=== PATIENT | male | born 1985 | race Caucasian/White ===

== ENCOUNTER 2018-07-17 22:30 | Observation (INO) | payer OTHER ==
[~2018-07-17] VITALS: Ht 177.8 cm; Wt 161.0 kg
[2018-07-17] MEDS ORDERED: ONDANSETRON HCL INJ 2MG/ML 2ML 2 MG/ML VIAL IV STA (22:56)
[2018-07-17] MEDS ORDERED: MORPHINE SULFATE INJ 4 MG/ML INJ 1ML IV ONE (23:00)
[2018-07-17 23:30] LABS: BASOPHILS % 0.2 % (0.0-1.0); EOSINOPHILS # (AUTO) 0.2 (0.0-0.4); EOSINOPHILS % 1.6 % (0.0-6.0); HEMATOCRIT 44.2 % (38.2-49.6); HEMOGLOBIN 15.1 g/dL (14.0-18.0); LYMPHOCYTES # (AUTO) 2.2 (1.0-3.2); LYMPHOCYTES % 18.1 % (18.0-39.1); MEAN CORPUSCULAR HEMOGLOBIN 29.5 pg (28-32); MEAN CORPUSCULAR HGB CONC 34.2 g/dL (31-35); MEAN CORPUSCULAR VOLUME 86.3 fL (81-99); MONOCYTES # (AUTO) 0.7 (0.2-0.8); MONOCYTES % 5.4 % (4.4-11.3); NEUTROPHILS % 74.5 % (38.7-80.0); PLATELET COUNT 360 x10e3/uL (140-360); RED BLOOD COUNT 5.12 x10e6/uL (4.3-5.7); RED CELL DISTRIBUTION WIDTH 12.5 % (11.7-14.4)
[2018-07-17] MEDS: CEFOXITIN 1GM/ NS 50ML 50 ML IV SCH (23:30)
[2018-07-17] MEDS: SODIUM CHLORIDE 0.9% 1000ML 1,000 ML IV SCH (23:30)
[2018-07-17 23:33] LABS: INR 0.92; PROTHROMBIN TIME 12.9 seconds (11.9-14.5)
[2018-07-17 23:45] LABS: ALANINE AMINOTRANSFERASE 46 IU/L (0-55); ALBUMIN 3.7 g/dL (3.5-5.0); ALBUMIN/GLOBULIN RATIO 0.9 (0.8-2.0); ALKALINE PHOSPHATASE 74 IU/L (40-150); ANION GAP 12.9 mmol/L (8-16); BLOOD UREA NITROGEN 11 mg/dL (7-26); BUN/CREATININE RATIO 10 (6-25); CALCIUM 9.5 mg/dL (8.4-10.2); CARBON DIOXIDE 24 mmol/L (22-29); CHLORIDE 100 mmol/L (98-107); CREATININE, SERUM 1.08 mg/dL (0.72-1.25); EST GLOMERULAR FILTRATION RATE > 60 ML/MIN (60-); GLUCOSE 113 mg/dL (74-118); POTASSIUM 3.9 mmol/L (3.5-5.1); SODIUM 133 mmol/L (136-145)
[2018-07-18] MEDS ORDERED: MORPHINE SULFATE 2 MG/ML SYR 1ML IV PRN (00:15)
--- NOTE | 2018-07-18 00:17 | NUR ---
PT PRESSED CALL DIALLO, REQUESTING ADDITIONAL PAIN MEDICATION, DR HAGAN INFORMED AND IN ROOM TO RE-EVAL PATIENT AND DISCUSS PAIN MANAGEMENT
[2018-07-18] MEDS ORDERED: no home meds (01:56)
[2018-07-18] MEDS ORDERED: ONDANSETRON HCL INJ 2MG/ML 2ML 2 MG/ML VIAL ONE ×2 (03:14→14:47)
[2018-07-18] MEDS ORDERED: MORPHINE SULFATE INJ 4 MG/ML INJ 1ML ONE ×3 (03:14→14:45)
[2018-07-18] MEDS: ONDANSETRON HCL INJ 2MG/ML 2ML 2 MG/ML VIAL IV PRN ×2 (03:15→07:35)
--- NOTE | 2018-07-18 03:18 | NUR ---
pt placed on hospital bed for comfort. awake alert skin w/d resp nonlab. nad noted.
[2018-07-18] MEDS: CEFOXITIN 1GM/ NS 50ML 50 ML IV SCH (06:20)
[2018-07-18] MEDS: SODIUM CHLORIDE 0.9% 1000ML 1,000 ML IV SCH (06:27)
--- NOTE | 2018-07-18 07:00 | NUR ---
REPORT RECEIVED FROM GI HOPPER. PT IN BED IN PRONE POSITION, BREATHING EVEN/UNLABORED.
[2018-07-18] MEDS ORDERED: MORPHINE SULFATE INJ 4 MG/ML INJ 1ML IV PRN (07:30)
[2018-07-18] MEDS ORDERED: BUPIVACAINE 0.25%/EPI 30ML SDV INJ ONE (13:35)
[2018-07-18] MEDS ORDERED: LIDOCAINE HCL 1% LOCAL INJ 20 ML VIAL ONE (13:35)
[2018-07-18] MEDS ORDERED: LIDOCAINE JELLY 2% 10ML URO-JET ONE (13:35)
[2018-07-18] MEDS ORDERED: FENTANYL CITRATE/PF 100MCG/2 ML INJ ONE (13:43)
[2018-07-18] MEDS ORDERED: MIDAZOLAM HCL 2 MG/2 ML VIAL ONE (13:43)
[2018-07-18] MEDS ORDERED: LIDOCAINE HCL 2% LOCAL INJ 5 ML SDV VIAL INJ ONE (14:47)
[2018-07-18] MEDS ORDERED: SEVOFLURANE INHAL SOLN 250 ML PEN BTL ONE (14:47)
[2018-07-18] MEDS ORDERED: CEFOXITIN SOD 1 GM VIAL ONE (14:47)
[2018-07-18] MEDS ORDERED: PROPOFOL IV EMULSION 10 MG/ML 20 ML VIAL ONE (14:47)
[2018-07-18] MEDS ORDERED: DEXAMETHASONE SOD PHOS INJ 4 MG/ML VIAL ONE (14:47)
[2018-07-18] MEDS ORDERED: HYDROMORPHONE 2MG/ML 2 MG/ML ML ONE (14:53)
[2018-07-18] MEDS ORDERED: ACETAMINOPHEN/CODEINE 300MG - 30MG TAB ONE (15:44)
[2018-07-18 16:04] VITALS: BP 124/64
--- NOTE | 2018-07-19 01:51 | Operative Report ---
DATE OF PROCEDURE: 07/18/2018 SURGEON: Vasquez Jordan MD PREOPERATIVE DIAGNOSIS: Perirectal abscess with fistula. POSTOPERATIVE DIAGNOSIS: Perirectal abscess with fistula. OPERATION PERFORMED: Drainage of perirectal abscess and fistulectomy. ANESTHESIA: General. COMPLICATIONS: None. ESTIMATED BLOOD LOSS: Minimal. DESCRIPTION OF PROCEDURE: With the patient lying in bed in the lithotomy position under good general anesthesia, the perineum was prepped with Betadine solution and draped in the usual manner. There was an area draining pus at the 6 o'clock position and a fistula tract probe was then inserted and without any difficulty to fell into the 6 o'clock position where there was an internal opening. This was then opened up with the cautery and the fistula tract was opened without any difficulty. The whole area was then thoroughly debrided and then irrigated. Hemostasis was ascertained. The wound was then packed with iodoform gauze. A dressing was applied. The sponge, lap, and needle count was correct. The patient tolerated the procedure well and returned to the recovery room in stable condition. Vasquez Jordan MD JLR/MODL /[id number]
== END 2018-07-18 16:20 | disposition home or self-care (01) ==
LOC: ER 22:30 → ERHOLD 07-18 00:30
PROVIDERS: ADMIT Surgery; ATTEND Surgery
DX: K61.2 Anorectal abscess (principal); G47.33 Obstructive sleep apnea (adult) (pediatric); F41.9 Anxiety disorder, unspecified
CPT/HCPCS: 36415; 46270; 80053; 85025; 85610; 85730; 96374; 99284; G0378; J0694; J1100; J1170; J2001; J2250; J2270 ×2; J2405 ×2; J2704; J7030 ×2